=== PATIENT | male | born 1950 | race Caucasian/White ===

== ENCOUNTER 2019-06-26 08:04 | Day surgery (SDC) | payer MEDICARE, MEDICAID, SELFPAY ==
[2019-06-26 08:35] VITALS: BP 137/84; PULSE 73; RESP 18; TEMP 36.7; O2SAT 98
[2019-06-26] MEDS: sodium chloride 0.9% 1,000 ML 30 ML (08:45)
--- NOTE | 2019-06-26 09:16 | ANES.PREANE2 ---
Pre-Anesthetic Assessment Pre-Anesthetic Assessment: Height/Weight: Temp Pulse Resp BP Pulse Ox 98.0 F 73 18 137/84 98 06/26/19 08:35 06/26/19 08:35 06/26/19 08:35 06/26/19 08:35 06/26/19 08:35 Preop Diagnosis: History of colon polyps Proposed Procedure: Operation Date: 06/26/19 10:00 Proposed Procedures p Colonoscopy 42009 Z12.11 Screening(Not Applicable) - Rehan Giraldo MD Familial anesthetic complications: n/v in the past Was Beta Tristan taken within 24 hours: Yes (0500 ) Last intake: Intake Last Liquid Date 06/25/19 Last Liquid Time 16:00 Last Solid Date 06/24/19 Social: Social History: No alcohol and No tobacco Exam: Pre-Anes Outpt Exam: alert, oriented x 3, clear to auscultation bilaterally and regular rate & rhythm Airway: Submandibular: WNL Cervical ROM: WNL MP: 2 Dentition: False History/ROS: No significant history except as noted Pulmonary: Comments: seasonal allergies CV/HEM: CV/HEM: HTN : : None reported Hepatic: Hepatic: None reported GI: GI: GERD Metabolic: Metabolic: Hyperlipidemia and Thyroid Musc/skel: Musc/skel: OA/DJD Neuropsych: Neuropsych: None reported Anesthetic Plan: ASA status: 2 Anesthesia: Anesthesia Evaluation and MAC Risk of > 500 ml blood loss (7ml/kg in children): No PFSH Anesthesia PFSH: Social History Smoking and tobacco status: never smoked Alcohol intake: never Lives independently: Yes Household members: family Current occupational status: retired History of recent travel: No Data Anesthesia Cardiac Studies: No Data to Display
--- NOTE | 2019-06-26 10:39 | W.PM.OPSFHP ---
Same Day Surgery H&P Indication for Procedure/HPI DATE OF PROCEDURE: June 26, 2019 CHIEF COMPLAINT/INDICATIONFOR SURGICAL PROCEDURE: History of colon polyps PREOP DIAGNOSIS: History of colon polyps PLANNED PROCEDRUE: Operation Date: 06/26/19 10:00 Proposed Procedures p Colonoscopy 21698 Z12.11 Screening(Not Applicable) - Rehan Giraldo MD Medications/Allergies* Home Medications Medication Instructions Recorded Confirmed Type finasteride 5 mg tablet 5 mg PO DAILY 05/20/19 06/26/19 History levothyroxine 50 mcg capsule 50 mcg PO DAILY 05/20/19 06/26/19 History metoprolol succinate 50 mg 50 mg PO DAILY 05/20/19 06/26/19 History tablet,extended release 24 hr montelukast 10 mg tablet 10 mg PO DAILY 05/20/19 06/26/19 History ranitidine HCl 150 mg capsule 150 mg PO BID 05/20/19 06/26/19 History simvastatin 20 mg tablet 20 mg PO DAILY 05/20/19 06/26/19 History tamsulosin 0.4 mg capsule 0.4 mg PO DAILY 05/20/19 06/26/19 History Allergies/Adverse Reactions Allergy/AdvReac Type Severity Reaction Status Date / Time No Known Allergies Allergy Unverified 05/20/19 15:45 Pertinent History/Comorbid Conditions* Medical History (Updated 05/20/19 @ 16:46 by Rehan Giraldo MD) BPH (benign prostatic hyperplasia) Hypercholesteremia Hypertension Hypothyroidism Surgical History (Updated 05/20/19 @ 16:24 by Rehan Giraldo MD) H/O colonoscopy 04/13/[address] Woods History of thyroidectomy Family History (Updated 05/20/19 @ 15:49 by RODRICK Arambula) Denies family history of Anesthesia complication Bleeding disorder Social History Smoking and tobacco status: never smoked Alcohol intake: never Lives independently: Yes Household members: family Current occupational status: retired History of recent travel: No Pertinent Exam Findings alert and oriented x 3 Recommendations Surgery/Procedure today Coding Level of Care Code Acute [employer] Football[employer] for Tarik Gutiérrez
--- NOTE | 2019-06-26 10:43 | ANE.PACU2 ---
 Inpatient post-anesthesia follow up: Airway intact: Yes Vital signs: Temperature 98.0 F Pulse Rate 73 Respiratory Rate 18 Blood Pressure 137/84 Pulse Oximetry 98 Oxygen Delivery Me thod Room Air Oxygen Flow Rate Fraction of Inspir ed Oxygen Hydration adequate: Yes Nausea and vomiting: No Mental status: Baseline
[2019-06-26 10:50] VITALS: BP 110/76; PULSE 60; RESP 18; O2SAT 96
== END 2019-06-26 11:12 | disposition home or self-care (01) ==
PROVIDERS: Family Provider Family Medicine; PCP Family Medicine; Visit Provider Surgery
PROC: 0DJD8ZZ Inspection of Lower Intestinal Tract, Via Natural or Artificial Opening Endoscopic (ICD-10-PCS; CPT 45378; principal; 2019-06-26 10:00)
DX: Z12.11 Encounter for screening for malignant neoplasm of colon (principal); D12.0 Benign neoplasm of cecum; K57.30 Diverticulosis of large intestine without perforation or abscess without bleeding; N40.0 Benign prostatic hyperplasia without lower urinary tract symptoms; I10 Essential (primary) hypertension; K21.9 Gastro-esophageal reflux disease without esophagitis; M19.90 Unspecified osteoarthritis, unspecified site; E78.5 Hyperlipidemia, unspecified
CPT/HCPCS: 12345; 45380; 88305; J2704; J7030

== ENCOUNTER → 2021-08-09 11:10 | Outpatient (BNVA) | payer MEDICARE, MEDICAID, SELFPAY | PROVIDERS: Family Provider Family Medicine; PCP Family Medicine; Visit Provider Surgery | DX: R19.5 Other fecal abnormalities (principal) | CPT/HCPCS: 99214 ==

== ENCOUNTER → 2021-08-12 08:08 | Outpatient (BNVA) | payer MEDICARE, MEDICAID, SELFPAY | PROVIDERS: Family Provider Family Medicine; PCP Family Medicine; Visit Provider Urology | DX: R97.20 Elevated prostate specific antigen [PSA] (principal) | CPT/HCPCS: 81003; 84153 ==

== ENCOUNTER 2021-08-19 13:35 | Outpatient (CLI) | payer MEDICARE, MEDICAID, SELFPAY ==
--- NOTE | 2021-08-19 13:42 | US_ITS ---
WS: [id number] RENAL ULTRASOUND HISTORY: ELEVATED SERUM CREATININE COMPARISON: 05/08/2011 TECHNIQUE: 2-D and color Doppler imaging of the kidney submitted. Right kidney: 9.6 cm x 4.8 cm x 5.0 cm. Normal echogenicity with no hydronephrosis or mass. Left kidney: 8.9 cm x 4.1 cm x 4.7 cm. Low normal size kidney. No mass or hydronephrosis. Cortical cyst mid kidney measures 7 mm. Aorta: Normal. Urinary Bladder: Mildly distended bladder. Prostate encroaches into the base of the urinary bladder. Prostate measures 5.2 x 4.5 x 6.7 cm. There is nodularity and variable echogenicity. US/US renal BI* [id number] IMPRESSION: 1. No hydronephrosis or mass. 2. 7 mm cortical cyst interpolar LEFT kidney. 3. Marked prostate gland enlargement and heterogeneity.
== END 2021-08-19 13:36 | disposition home or self-care (01) ==
LOC: RAD 13:36
PROVIDERS: PCP Family Medicine; Visit Provider Nurse Practitioner Family
DX: R79.89 Other specified abnormal findings of blood chemistry (principal); N28.1 Cyst of kidney, acquired; N40.0 Benign prostatic hyperplasia without lower urinary tract symptoms
CPT/HCPCS: 76770

== ENCOUNTER 2022-04-07 06:30 | Outpatient (CLI) | payer MEDICARE, MEDICAID, SELFPAY ==
--- NOTE | 2022-04-07 | CT_ITS ---
WS: [id number] EXAMINATION: CT head wo/w con [id number] REASON FOR EXAM: ABN COORDINATION COMPARISON: None available. ORDER DATE: 04/07/2022 7:03 AM TOTAL EXAM DLP: 1923.[address] scans at [facility] use at least one of these dose optimization techniques: automated e xposure control; mA and/or kV adjustment per patient size (includes targeted exams where dose is matc hed to clinical indication); or iterative reconstruction. TECHNIQUE: CT imaging of the head is performed without the use of intravascular contrast with transax ial imaging from the skull base to the vertex with 2-D reformats. FINDINGS: There is decreased attenuation within each centrum semiovale consistent with chronic microvascular i schemic changes including an area of gliosis or chronic encephalomalacia in the left christine radiata. There is prominence of the ventricles secondary to central and generalized cortical atrophy. There i s no mass effect, midline shift or intraventricular or parenchymal hemorrhage. There are no extra-axi al fluid collections. The paranasal sinuses demonstrate prominent mucosal thickening and without air - fluid levels. The mastoids are clear. There is no sign of skull fracture. There are atherosclerotic cerebrovascular calcifications. CT/CT head wo/w con [id number] IMPRESSION: 1. MICROVASCULAR CHRONIC ISCHEMIC CHANGES IN CENTRAL WHITE MATTER. 2. MILD VENTRICULOMEGALY AND CORTICAL ATROPHY. 3. CHRONIC DIFFUSE SINUSITIS
[2022-04-07] MEDS: iohexol 350 mg/mL 500 mL Btl (per mL) IV (07:04)
[2022-04-07 07:56] LABS: Blood Urea Nitrogen 11 mg/dL (8-23)
== END 2022-04-07 06:31 | disposition home or self-care (01) ==
LOC: RAD 06:33
PROVIDERS: PCP Family Medicine; Visit Provider Family Medicine
DX: R27.8 Other lack of coordination (principal); G93.89 Other specified disorders of brain; G31.9 Degenerative disease of nervous system, unspecified; J32.9 Chronic sinusitis, unspecified
CPT/HCPCS: 70470; 82565; 84520; Q9967

== ENCOUNTER → 2025-01-19 08:38 | Outpatient (BNVA) | payer MEDICARE, MEDICAID, SELFPAY | PROVIDERS: PCP Family Medicine; Visit Provider Family Medicine | DX: Z13.6 Encounter for screening for cardiovascular disorders (principal); N40.0 Benign prostatic hyperplasia without lower urinary tract symptoms; R97.20 Elevated prostate specific antigen [PSA] | CPT/HCPCS: 80053; 80061; 84153; 84439; 84443; 85025 ==

== ENCOUNTER → 2025-04-20 10:59 | Outpatient (BNVA) | payer MEDICARE, MEDICAID, SELFPAY | PROVIDERS: PCP Family Medicine; Visit Provider Family Medicine | DX: Z12.5 Encounter for screening for malignant neoplasm of prostate (principal); E03.9 Hypothyroidism, unspecified; R97.20 Elevated prostate specific antigen [PSA] | CPT/HCPCS: 80053; 84153; 84439; 84443 ==